=== PATIENT | female | born 1960 | race Hispanic/Latino ===

== ENCOUNTER → 2018-06-06 | Day surgery (SDC) | payer BC ==
[2018-06-03 16:38] LABS: BASOPHILS % 0.3 % (0.0-1.0); EOSINOPHILS # (AUTO) 0.2 (0.0-0.4); EOSINOPHILS % 3.2 % (0.0-6.0); HEMATOCRIT 36.2 % (34.2-44.1); HEMOGLOBIN 11.8 g/dL (12.0-16.0); LYMPHOCYTES # (AUTO) 2.4 (1.0-3.2); LYMPHOCYTES % 39.6 % (18.0-39.1); MEAN CORPUSCULAR HEMOGLOBIN 29.5 pg (28-32); MEAN CORPUSCULAR HGB CONC 32.6 g/dL (31-35); MEAN CORPUSCULAR VOLUME 90.5 fL (81-99); MONOCYTES # (AUTO) 0.3 (0.2-0.8); MONOCYTES % 5.7 % (4.4-11.3); NEUTROPHILS # (AUTO) 3.1 (2.1-6.9); PLATELET COUNT 193 x10e3/uL (140-360)
[2018-06-03 16:50] LABS: INR 0.9
[2018-06-03 16:51] LABS: PARTIAL THROMBOPLASTIN TIME 28.2 seconds (23.8-35.5)
[2018-06-03 16:56] LABS: ANION GAP 12.1 mmol/L (8-16); BLOOD UREA NITROGEN 18 mg/dL (7-26); BUN/CREATININE RATIO 21 (6-25); CALCIUM 9.9 mg/dL (8.4-10.2); CARBON DIOXIDE 27 mmol/L (22-29); CHLORIDE 100 mmol/L (98-107); CREATININE, SERUM 0.85 mg/dL (0.57-1.11); EST GLOMERULAR FILTRATION RATE > 60 ML/MIN (60-); GLUCOSE 210 mg/dL (74-118); POTASSIUM 4.1 mmol/L (3.5-5.1); SODIUM 135 mmol/L (136-145)
--- NOTE | 2018-06-03 17:33 | Diagnostic Imaging Report ---
EXAMINATION: CHEST 2 VIEWS INDICATION: ^MD ORDER ^[id number] ^[id number] ^PRE ADMIT COMPARISON: None FINDINGS: PA and lateral views TUBES and LINES: None. LUNGS: Lungs are well inflated. Lungs are clear. There is no evidence of pneumonia or pulmonary edema. PLEURA: No pleural effusion or pneumothorax. HEART AND MEDIASTINUM: The cardiomediastinal silhouette is unremarkable. BONES AND SOFT TISSUES: Mild multilevel degenerative changes of the thoracic spine. Soft tissues are unremarkable. UPPER ABDOMEN: No free air under the diaphragm. IMPRESSION: No acute thoracic abnormality. Signed by: Dr. Naila Robledo M.D. on 06/03/2018 5:30 PM
[~2018-06-06] MED LIST: ASPIR 8181 MG PO; ATORVASTATIN CA20 MG PO; BETAMETHASONE DISODIUM PHOS 6 MG/ML VIAL ONE; BRILINTA90 MG PO; BUPIVACAINE HCL 0.5% INJ 30 ML VIAL INJ ONE; CEFAZOLIN SOD 2 GM/D5W 50ML 50 ML IV ONE; DEXAMETHASONE SOD PHOS INJ 4 MG/ML VIAL ONE; DEXTROSE 50% SYRINGE 50 ML IV ONE; EPHEDRINE SULFATE INJ 50 MG/10 ML SYR ONE; FENTANYL CITRATE/PF 100MCG/2 ML INJ ONE; GLIPIZIDE5 MG PO; INSULIN REGULAR, HUMAN 100 UNIT/1 ML 3ML VIAL ONE; KETOROLAC TROMETHAMINE 30 MG/ML VIAL ONE; LIDOCAINE HCL 1% LOCAL INJ 20 ML VIAL ONE; LIDOCAINE HCL 2% LOCAL INJ 5 ML SDV VIAL INJ ONE; LISINOPRIL2.5 MG PO; METFORMIN HCL500 MG PO; MIDAZOLAM HCL 2 MG/2 ML VIAL ONE; MUPIROCIN 2% OINT 22 GM TUBE ONE; ONDANSETRON HCL INJ 2 MG/ML VIAL ONE; PROPOFOL IV EMULSION 10 MG/ML 20 ML VIAL ONE; SEVOFLURANE INHAL SOLN 250 ML PEN BTL ONE
--- OUTSIDE RECORDS SUMMARY | 2018-06-06 05:29 | XMS REPORT ---
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 Allergies, Adverse Reactions, Alerts This patient has no known allergies or adverse reactions. Medications This patient has no known medications. Results Test Description Test Time Test Comments Text Results Atomic Results Result Comments CHEST 2 VIEWS 2018-06-03 17:29:00 [facility] [address] [address] Patient Name: ERNESTINA DURAN MR #: [id number] : 1960 Age/Sex: 57/F Req #: [id number] Adm Physician: Ordered by: ZULLY ALAS DPM Report #: [id number] Location: OR Room/Bed: Procedure: [id number] DX/CHEST 2 VIEWS Exam Date: 06/03/18 Exam Time: 1645 REPORT STATUS: Signed EXAMINATION: CHEST 2 VIEWS INDICATION: MD Maira HERMOSILLO [id number] PRE ADMIT COMPARISON: None FINDINGS: PA and lateral views TUBES and LINES: None. LUNGS: Lungs are well inflated. Lungs are clear. There is no evidence of pneumonia or pulmonary edema. PLEURA: No pleural effusion or pneumothorax. HEART AND MEDIASTINUM: The cardiomediastinal silhouette is unremarkable. BONES AND SOFT TISSUES: Mild multilevel degenerative changes of the thoracic spine. Soft tissues are unremarkable. UPPER ABDOMEN: No free air under the diaphragm. IMPRESSION: No acute thoracic abnormality. Signed by: Dr. Nasrin Anderson M.D. on 06/03/2018 5:30 PM Dictated By: NASRIN ANDERSON MD 29 Transcribed By: STACEY on 06/03/181729 COPY TO: ZULLY ALAS DPM
--- OUTSIDE RECORDS SUMMARY | 2018-06-06 05:29 | XMS REPORT | Clinical Summary ---
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 Active lisinopril Take 2.5 mg 0 (PRINIVIL,ZESTRIL) 10 mg by mouth tablet daily. Active atorvastatin (LIPITOR) 80 Take 80 mg by 0 MG tablet mouth daily. Active ticagrelor (BRILINTA) 90 Take 90 mg by 0 mg tablet mouth 2 (two) times a day. Active glipiZIDE (GLUCOTROL) 5 Take 5 mg by 0 MG tablet mouth 2 (two) times a day before meals. Active aspirin (ECOTRIN) 81 MG Take 81 mg by 0 enteric coated tablet mouth daily. Active Problems Not on file Encounters Care Team Description Date Type Specialty Minerva Negrete MD Cv left heart cath w lv gram cors [43754 (CPT)] 03/16/2018 Surgery Procedural Cardiology Minerva Negrete MD Angina at rest 03/16/2018 Hospital Procedural Cardiology Encounter after 06/05/2017 Social History Date Tobacco Use Types Packs/Day Years Used Never Assessed Sex Assigned at Date Recorded Not on file Industry Job Start Date Occupation Not on file Not on file Not on file Travel End Travel History Travel Start No recent travel history available. Last Filed Vital Signs Time Taken Vital Sign Reading 03/16/2018 3:15 PM CDT Blood Pressure 106/64 03/16/2018 3:15 PM CDT Pulse 71 03/16/2018 10:30 AM CDT Temperature 36.7 C (98 F) 03/16/2018 3:15 PM CDT Respiratory Rate 14 03/16/2018 3:15 PM CDT Oxygen Saturation 98% - Inhaled Oxygen - Concentration 03/16/2018 6:44 AM CDT Weight 55.5 kg (122 lb 4 oz) 03/16/2018 6:44 AM CDT Height 152.4 cm (5') 03/16/2018 6:44 AM CDT Body Mass Index 23.88 Plan of Treatment Not on file Procedures Comments Procedure Name Priority Date/Time Associated Diagnosis CV LEFT HEART CATH LV Routine 03/16/2018 Angina at rest GRAM WITH CORS 10:15 AM CDT POC GLUCOSE Routine 03/16/2018 6:30 AM CDT after 06/05/2017 Results * 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 Had PCI of CX done. LAD occlusion was not mentioned on PCI or LHC report. 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 For now, medical therapy. Performing Organization Address City[facility] Phone Number [facility] [address] [place] [address] * POC glucose (03/16/2018 6:30 AM CDT) POC glucose 228 (H) 65 - 99 mg/dL [facility] DEPARTMENT OF Comment: PATHOLOGY AND [facility] Notified RN GENOMIC MEDICINE Meter ID: [id number] Assembler Motor Vehicle: Abrahan Byers Performing Organization Address City/[facility]/Zipcode Phone Number [facility] DEPARTMENT OF [address] [place] [id number] PATHOLOGY AND GENOMIC MEDICINE after 06/05/2017 Insurance Payer Benefit Subscriber ID Type Phone Address Plan / Group BCBS BCBS xxxxxxxxxxxx PPO CHOICE PPO/[employer] PPO Advance Directives Patient has advance care planning documents on file. For more information, meenu morillo contact: [employer] [address] [place] [address]
--- OUTSIDE RECORDS SUMMARY | 2018-06-06 05:29 | XMS REPORT | Summary of Care ---
Author Author Angela Spangler R.N. Organization Unknown Address Unknown Phone Unavailable Care Team Providers Care Neurology Stroke Physician Name Role Phone SAADIA CEJA M.D. Unavailable Unavailable Angela Spangler R.N. Unavailable Unavailable Unavailable Unavailable Functional Status Name Dates Details Functional status health issues are not documented Status: Name Dates Details Cognitive status health issues are not documented Status: Problems Name Dates Details Normal routine physical examination (V70.0, Z00.00) Status: Active Hypertension (401.9, I10) Status: Active Medications Name Dates Details Nitroglycerin 0.4 MG Sublingual Tablet Sublingual Active Metoprolol Tartrate 50 MG Oral Tablet TAKE 1 TABLET TWICE DAILY. * Quantity: 90 Refills: 3 BRENNA M.D., SAADIA Active Lisinopril 2.5 MG Oral Tablet TAKE 1 TABLET DAILY. * Quantity: 90 Refills: 3 BRENNA M.D., SAADIA Active Atorvastatin Calcium 80 MG Oral Tablet * Refills: 0 Active Aspirin 81 MG Oral Tablet Chewable * Refills: 0 Active Brilinta 90 MG Oral Tablet * Refills: 0 Active MetFORMIN HCl ER (MOD) 1000 MG Oral Tablet Extended Release 24 Hour * Refills: 0 Active Allergies and Adverse Reactions Name Dates Details No Known Drug Allergies (Allergy) Status: Active Past Medical History Name Dates Details History of Heart attack (410.90, I21.9) Status: Resolved Procedures Procedure Dates Details History of cardiac catheterization with stent placement Completed Immunization Name Dates Details Immunizations not documented Social History Name Dates Details - Status: Name Dates Details Former smoker Vital Signs Date Test Result Details [id number] BP Systolic 99 mm[Hg] Status: Comments: Location: RUE; BP Diastolic 63 mm[Hg] Status: Comments: Location: RUE; Weight 118.125 lb Status: Heart Rate 69 /min Status: Comments: Location: R Brachial Artery; Quality: Normal Respiration Rate 16 /min Status: Comments: Quality: Normal Results Date Description Value Details [id number] Tobacco Use Screening Completed DONE Plan of Care Name Dates Details Planned Observations Planned Goals not documented Planned Encounters Appointment; SAADIA CEJA M.D. On: 24-Nov-2017 15:20 Interventions Provided Discussion/Summary* Guideline Used: * Other: * to speak with staff member * Recommended Disposition: call back if no call 24-72 hrs from staff member * See Provider within 2 weeks * Action Taken: * Patient informed/educated about nurse line * Reason for Disposition: to have work release completed. * Intended Caller Action: * Other: * son is calling to to requesting status of [place] document. Warm transfer to [facility] at 1646. * verbalized understanding of this call and agree to the recommended disposition at this time. Adult Child was also educated on nurse line use and encouraged to call back for symptom support or additional home care advice and or go to the nearest ED. or call 911 if condition has worsened to a medical emergency. * Denies active s/s or worse. Instructions Name Dates Details Instructions not documented Encounters Appointment; SAADIA CEJA M.D. Encounter Diagnosis: Problem not documented On: 25-Aug-2017 16:00
[2018-06-06 10:20] VITALS: BP 119/73
--- NOTE | 2018-06-06 10:27 | Operative Report ---
DATE OF PROCEDURE: June 06, 2018 PREOPERATIVE DIAGNOSES 1. Painful hallux valgus deformity, right foot. 2. Painful contracted hammertoe 4th digit, right. 3. Painful contracted hammertoe 5th digit, right. 4. Painful plantar fasciitis, right foot. 5. Tarsal tunnel syndrome, right foot. POSTOPERATIVE DIAGNOSES 1. Painful hallux valgus deformity, right foot. 2. Painful contracted hammertoe 4th digit, right. 3. Painful contracted hammertoe 5th digit, right. 4. Painful plantar fasciitis, right foot. 5. Tarsal tunnel syndrome, right foot. OPERATIVE PROCEDURES 1. Gigi bunionectomy with screw fixation, right foot. 2. Arthroplasty, 4th digit with Mingo wire fixation of the 4th. 3. Arthroplasty, 5th digit with Mingo wire fixation of the 5th. 4. Endoscopic plantar fasciotomy. 5. Neurolysis of tibial nerve. 6. Neurolysis of medial plantar nerve. 7. Neurolysis of lateral plantar nerve, right foot. 8. Intraoperative use of fluoroscopy. 9. Trigger point shot of cortisone. 10. Application of posterior splint. ANESTHESIA: General. HEMOSTASIS: Pneumatic thigh tourniquet at 350 mmHg. PROCEDURE IN DETAIL: Patient was taken into the operating room and placed on the operating room table in the supine position. Following induction of general anesthesia by the anesthesiologist, Webril wraps were placed on the patient's right thigh followed by application of right thigh tourniquet. The right lower extremity was then prepped and draped in the usual aseptic manner. The following procedure was then performed. PROCEDURE #1: Gigi bunionectomy with screw fixation, right foot. Attention was directed to the dorsomedial aspect of the 1st MPJ where a 6 cm linear incision was performed. The incision was deepened via sharp and blunt dissection being care to retract vital structures and ligate superficial vessels as necessary. Once the level of the capsule was reached, a longitudinal capsulotomy was performed exposing the dorsomedial exostosis of the 1st metatarsal head. Via the use of an oscillating saw, dorsomedial exostosis was excised from the operation site in toto. All rough and bony edges were rasped smooth. A V-osteotomy was then performed from medial to lateral. Capital fragment was then transitioned laterally. Upon adequate surgical and anatomical reduction utilizing proper AO technique, a 2 x 14 mm cortical screw in conjunction with a buried 0.045 K-wire was used to achieve stability at the osteotomy site. All redundant bone medial was excised via the use of an oscillating saw and rotating bur. PROCEDURE #2 AND #3: Arthroplasty, 4th and 5th digits with K-wire fixation of 4th. Attention was directed to the dorsal aspect of the above-mentioned toes overlying the proximal interphalangeal joint where a 3 cm linear incision was performed. The incision was deepened down to the joint capsule. Transverse capsulotomy was then performed exposing the head of the proximal phalanx. Via the use of an oscillating saw, head of the proximal phalanx was then excised from the operation site in toto. All rough and bony edges were rasped smooth. The 4th toe was still noted to be contracted. So a 0.045 K-wire was introduced up to the metatarsophalangeal joint to achieve proper anatomic reduction. PROCEDURE #4: Endoscopic plantar fasciotomy. Attention was then directed to the medial aspect of the right heel where a stab incision was performed. Stab incision was then deepened underscored with a curved hemostat. A spatula was introduced in the medial portal. Stab incision was then performed laterally, and a iaehykf-plx-hrmyfab cannula was introduced medially. Camera was introduced through the lateral portal of the cannula revealing the plantar fascia. Via use of a triangle knife, the medial one-quarter to one-half of the plantar fascia was resected until the underlying muscle belly was encountered, and a medial band of the plantar fascial release was achieved. PROCEDURES #5, #6, AND #7: Neurolysis of tibial nerve, neurolysis of lateral plantar nerve and neurolysis medial plantar nerve. Attention was then directed to the medial aspect of the right talotibial joint where a curvilinear incision was performed posterior to the medial malleolus. The incision was deepened via sharp and blunt dissection, being careful to retract any vital structures and ligating superficial vessels as necessary. Once the level of the flexor retinaculum was achieved, utilizing meticulous dissection, the flexor retinaculum was cut. The incision was then carried down to the mathew pedis. The mathew pedis was cut to allow for proper entry of the tibial medial and lateral nerves. The incision was then deepened down deep to the flexor retinaculum. Utilizing blunt dissection, the tibial nerve was then neurolysed from all these adhesions. The incision was carried down until the medial, lateral and plantar nerves were divergent, and all adhesions were also released via blunt dissection down into the mathew pedis. PROCEDURE #8: Intraoperative use of fluoroscopy was then used to make sure proper alignment and fixation was achieved. All areas were then copiously flushed with sterile saline and antibiotic solution and suction. Closure was then obtained utilizing 3-0 Vicryl, 4-0 Vicryl, 4-0 nylon for capsule, subcutaneous tissue and skin respectively. PROCEDURE #9: Trigger point shot of cortisone was given to the 1st and 4th interspace of the right foot. Also, an anesthetic shot of cortisone was given overlying the tarsal canal area. Then approximately 15 mL of 0.5% plain Marcaine plus 5 mL of 1% Xylocaine plain were used to achieve local anesthesia to the above-mentioned surgical area. Sterile dressing was applied. Upon release of the thigh tourniquet, blood hyperemia was noted to be immediate to all digits of the patient's right foot. PROCEDURE #10: Application of posterior splint. A properly placed posterior splint was then applied keeping the foot at 90 degrees with respect to the leg to try prevent any type of postoperative complications. Patient was then transferred from the OR to the recovery room with vital signs stable and neurovascular status intact. No intraoperative complications were encountered. Blood loss from the surgery was minimal. Patient to remain nonweightbearing with the aid of crutches. Keep her foot elevated, and is to apply an ice pack to the ankle joint area. Job#: [id number]
--- NOTE | 2018-06-06 10:47 | Diagnostic Imaging Report ---
PROCEDURE:X-RAY RIGHT FOOT, TWO VIEWS COMPARISON:None. INDICATIONS:STATUS POST RIGHT FOOT SURGERY FINDINGS: See conclusion. CONCLUSION: AP and lateral post-operative views of the right foot with overlying bandage material show post-surgical changes of a bunionectomy and arthroplasty with wire and screw through the distal first metatarsal and K wire traversing the fourth phalanges. There is surrounding soft-tissue swelling consistent with recent surgery. Spurring of the calcaneus is noted. Please refer to performing physician's notes for full details of this procedure. Néstor Mendez D.O. Dictated by: Néstor Mendez D.O. on 06/06/2018 at 10:57 Electronically approved by: Néstor Mendez D.O. on 06/06/2018 at 10:57
== END | disposition home or self-care (01) ==
LOC: OR 05:27
PROVIDERS: ATTEND Podiatrist Foot Surgery
DX: M20.11 Hallux valgus (acquired), right foot (principal); M20.41 Other hammer toe(s) (acquired), right foot; M72.2 Plantar fascial fibromatosis; G57.51 Tarsal tunnel syndrome, right lower limb; G58.8 Other specified mononeuropathies; E11.9 Type 2 diabetes mellitus without complications; I10 Essential (primary) hypertension; I25.118 Atherosclerotic heart disease of native coronary artery with other forms of angina pectoris; I25.2 Old myocardial infarction; E78.5 Hyperlipidemia, unspecified; Z01.810 Encounter for preprocedural cardiovascular examination; Z01.812 Encounter for preprocedural laboratory examination; Z01.818 Encounter for other preprocedural examination; Z79.84 Long term (current) use of oral hypoglycemic drugs; Z79.02 Long term (current) use of antithrombotics/antiplatelets; Z79.82 Long term (current) use of aspirin; Z95.5 Presence of coronary angioplasty implant and graft
CPT/HCPCS: 28035; 28285 ×2; 28296; 29893; 36415 ×2; 64704 ×2; 71046; 73620; 80048; 82948; 85025; 85610; 85730; 93005; C1713 ×2; J0690; J0720; J1100; J1817; J1885; J2001 ×2; J2250; J2405; J2704; J7799